=== PATIENT | female | born 1950 | race Two or more races ===

== ENCOUNTER 2020-10-16 17:30 | Emergency (ER) | payer SELFPAY ==
[~2020-10-16] VITALS: Ht 152.4 cm; Wt 59.1 kg
[2020-10-16] MEDS ORDERED: HYDR25TA2 PO (18:38)
[2020-10-16] MEDS ORDERED: FURO20 PO (18:38)
[2020-10-16] MEDS ORDERED: APIX5TAB PO (18:38)
[2020-10-16] MEDS ORDERED: METO-558 PO (18:38)
[2020-10-16] MEDS ORDERED: ROSU10TA72 PO (18:38)
[2020-10-16] MEDS ORDERED: CLOP75TA60 PO (18:38)
[2020-10-16] MEDS ORDERED: AMIO200T68 PO (18:38)
[2020-10-16] MEDS ORDERED: ASCO500 PO (18:38)
[2020-10-16] MEDS ORDERED: SODIUM CHLORIDE 0.9% 1,750 ML IV ONE (18:45)
[2020-10-16] MEDS ORDERED: 0.9% SODIUM CHLORIDE 10 ML SYRINGE IVP PRN (18:45)
[2020-10-16] MEDS ORDERED: ONDANSETRON HCL 4 MG/2 ML VIAL IVP ONE (19:00)
[2020-10-16 19:13] LABS: COVID AG,FIA SOURCE NASOPHARYNGEAL
[2020-10-16 19:16] LABS: BASOPHILS % (AUTO) 0.7 % (0.0-2.0); EOSINOPHILS % (AUTO) 0.1 % (1.0-6.0); HEMATOCRIT 33.5 % (36-46); HEMOGLOBIN 11.1 g/dL (12.0-16.0); LYMPHOCYTES # (AUTO) 1.1 K/uL (1.0-4.8); LYMPHOCYTES % (AUTO) 17.1 % (22.0-44.0); MEAN CORPUSCULAR HEMOGLOBIN 26.3 pg (26.0-34.0); MEAN CORPUSCULAR VOLUME 80 fL (80-100); MONOCYTES # (AUTO) 0.7 K/uL (0.1-1.0); MONOCYTES % (AUTO) 10.9 % (2.0-9.0); NEUTROPHILS # (AUTO) 4.4 K/uL (1.8-7.7); NEUTROPHILS % (AUTO) 71.2 % (40.0-70.0); PLATELET COUNT (AUTO) 218 K/uL (150-450); RED BLOOD CELL COUNT(AUTO) 4.21 MIL/uL (4.00-5.20); RED CELL DISTRIBUTION WIDTH 15.7 % (11.5-14.5)
[2020-10-16 19:26] LABS: CALCIUM, TOTAL 8.5 mg/dL (8.8-10.5); CREATININE 1.51 mg/dL (0.60-1.30); POTASSIUM 3.4 mmol/L (3.5-5.1)
[2020-10-16 19:30] LABS: D-DIMER 0.22 mg/L FEU (0.00-0.50); PROTHROMBIN TIME 10.5 SEC (9.4-11.6)
[2020-10-16 19:34] LABS: LACTIC ACID 0.8 mmol/L (0.4-2.0)
[2020-10-16 19:42] LABS: INFLUENZA TYPE A NEGATIVE FOR TYPE A (NEGATIVE); INFLUENZA TYPE B NEGATIVE FOR TYPE B (NEGATIVE)
[2020-10-16 19:50] LABS: ALBUMIN 3.4 g/dL (3.4-5.0); BILIRUBIN,TOTAL 0.4 mg/dL (0.1-1.0); TOTAL PROTEIN, SERUM 7.7 g/dL (6.4-8.2)
[2020-10-16] MEDS ORDERED: DEXTROSE 50%-WATER 25 GM/50 ML SYRINGE IVP PRN (20:15)
[2020-10-16] MEDS ORDERED: SODIUM CHLORIDE 0.9% 1,000 ML IV SCH (20:15)
[2020-10-16] MEDS ORDERED: INSULIN LISPRO 100 UNITS/ML SQ PRN (20:15)
[2020-10-16] MEDS ORDERED: CefTRIAXone 1 GM/DEXTROSE 50 ML IV ONE (20:30)
[2020-10-16] MEDS ORDERED: AZITHROMYCIN 500 MG/NS 250 ML IV ONE (20:30)
[2020-10-16 20:40] VITALS: BP 119/67
[2020-10-16 20:48] LABS: C-REACTIVE PROTEIN QUANT 5.26 mg/dL (0.00-0.30)
[2020-10-16] MEDS ORDERED: METOPROLOL TARTRATE 25 MG TABLET PO SCH (21:00)
[2020-10-16] MEDS ORDERED: APIXABAN 5 MG TABLET PO SCH (21:00)
== END 2020-10-16 21:52 | disposition left against medical advice (07) ==
LOC: EMS 17:33
DX: U07.1 COVID-19 (principal); E86.0 Dehydration; E87.1 Hypo-osmolality and hyponatremia; Z79.01 Long term (current) use of anticoagulants; Z79.899 Other long term (current) drug therapy
CPT/HCPCS: 36415; 71045; 80053; 82550; 82728; 82962; 83605; 83615; 83880; 84145; 84484; 85025; 85379; 85610; 85730; 86140; 87040; 87426; 87804; 93005; 96361; 96374; 99285; J2405; U0003